=== PATIENT | female | born 1990 | race Caucasian/White ===

== ENCOUNTER 2022-04-03 20:14 | Emergency (ER) | payer SELFPAY ==
[2022-04-03 20:54] LABS: Absolute Lymphocytes (CBC) 3.5 K/uL (0.7-4.9); Lymphocytes % 35.8 % (15.3-44.8); MCV 82.6 fL (80-100); MPV 7.5 fL (7.6-11.3)
[2022-04-03 21:12] LABS: Albumin 3.9 g/dL (3.4-5.0); Bilirubin Direct 0.2 mg/dL (0-0.2); Bilirubin Total 0.9 mg/dL (0.2-1.0); Magnesium 2.4 mg/dL (1.8-2.4); Potassium 3.9 mmol/L (3.5-5.1); Protein, Total 7.7 g/dL (6.4-8.2); Troponin High Sensitivity 3.1 pg/mL (<58.9)
--- NOTE | 2022-04-03 22:02 | RAD REPORT ---
EXAM DESCRIPTION: RAD - Chest Single View - 04/03/2022 9:26 pm CLINICAL HISTORY: CHEST PAIN Chest pain. COMPARISON: Chest Pa And Lat (2 Views) dated 10/02/2019 FINDINGS: Portable technique limits examination quality. The lungs are grossly clear. The heart is normal in size. No displaced fractures. IMPRESSION: No acute intrathoracic process suspected.
--- NOTE | 2022-04-03 22:14 | ER ---
Nurse's Notes [facility] Name: Blanquita Leonardo Age: 31 yrs Sex: Female : 1990 Arrival Date: 04/03/2022 Time: 20:15 Bed 3 Private MD: Diagnosis: Chest pain, unspecified Presentation: 04/03 20:23 Chief complaint: Patient states: "I've been having chest pains all days and it's gotten as6 progressively worse as the nights gone on". Coronavirus screen: At this time, the client does not indicate any symptoms associated with coronavirus-19. Ebola Screen: No symptoms or risks identified at this time. Initial Sepsis Screen: Does the patient meet any 2 criteria? No. Patient's initial sepsis screen is negative. Does the patient have a suspected source of infection? No. Patient's initial sepsis screen is negative. Risk Assessment: Do you want to hurt yourself or someone else? Patient reports no desire to harm self or others. Onset of symptoms was April 03, 2022. 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 - Social history:: Smoking status: Patient denies any tobacco usage or history of. Screenin:00 Abuse screen: Denies threats or abuse. Nutritional screening: No deficits noted. ha1 Tuberculosis screening: No symptoms or risk factors identified. Fall Risk None identified. Gait- Normal/Bed Rest/Wheelchair (0 pts) Mental Status- Oriented to own ability (0 pts). Assessment: 21:52 General: Appears in no apparent distress. Behavior is calm, cooperative. Pain: ha1 Complains of pain in chest pain Pain radiates to the left breast Pain at worst was 7 out of 10 on a pain scale. Quality of pain is described as pressure, throbbing, Pain began gradually. Neuro: Level of Consciousness is awake, alert, obeys commands, Oriented to person, place, time, situation, Moves all extremities. Full function Gait is steady. Cardiovascular: Heart tones S1 S2 present Capillary refill < 3 seconds Rhythm is sinus rhythm Chest pain is described as mild. Respiratory: Airway is patent Trachea midline Respiratory effort is even, unlabored, Respiratory pattern is regular, symmetrical, Breath sounds are clear bilaterally. GI: No signs and/or symptoms were reported involving the gastrointestinal system. : No signs and/or symptoms were reported regarding the genitourinary system. EENT: No signs and/or symptoms were reported regarding the EENT system. Derm: No signs and/or symptoms reported regarding the dermatologic system. Musculoskeletal: Range of motion: intact in all extremities. Vital Signs: 20:23 BP 136 / 91; Pulse 79; Resp 16 S; Temp 98.3(O); Pulse Ox 100% on R/A; Weight 90.72 kg as6 (R); Height 5 ft. 4 in. (162.56 cm) (R); Pain 7/10; 22:02 BP 123 / 87; Pulse 69; Resp 16 S; Pulse Ox 100% on R/A; Weight 90.72 kg; Height 5 ft. 4 ha1 in. (162.56 cm); 22:02 Body Mass Index 34.33 (90.72 kg, 162.56 cm) ha1 ED Course: 20:15 Patient arrived in ED. jj6 20:16 [facility]C [facility]. kb 20:16 Burak Ryder MD is Attending Physician. kb 20:26 Triage completed. as6 20:26 Arm band placed on. as6 20:42 Inserted saline lock: 20 gauge in right upper arm, using aseptic technique. Blood as6 collected. 20:43 EKG completed in triage. Results shown to . as6 21:28 XRAY Chest (1 view) In Process Unspecified. EDMS 21:50 Katt Garcia, RAYSA is Primary Nurse. ha1 22:01 Patient has correct armband on for positive identification. Placed in gown. Bed in low ha1 position. Side rails up X 1. Adult w/ patient. Client placed on continuous cardiac and pulse oximetry monitoring. NIBP monitoring applied. 22:21 No provider procedures requiring assistance completed. ha1 22:22 IV discontinued, intact, bleeding controlled, No redness/swelling at site. Pressure kd3 dressing applied. 22:22 Patient maintains SpO2 saturation greater than 95% on room air. kd3 Administered Medications: 22:20 Drug: Pepcid (famotidine) 20 mg Route: IVP; Site: right antecubital; ha1 22:21 Follow up: Response: No adverse reaction ha1 22:20 Drug: Ketorolac 30 mg Route: IVP; Site: right antecubital; ha1 22:20 Follow up: Response: No adverse reaction ha1 Medication: 22:22 VIS not applicable for this client. kd3 Outcome: 22:13 Discharge ordered by . sara 22:22 Discharged to home ambulatory. kd3 22:22 Condition: stable 22:22 Discharge instructions given to patient, family, Instructed on discharge instructions, follow up and referral plans. Demonstrated understanding of instructions, follow-up care. 22:26 Patient left the ED. kd3 Signatures: Dispatcher [employer] EDMS Sarah Hodge, KAILEE-C SEAMER PANTY HOSE-Danelle Kirby jj6 Brian Brewer RN RN as6 Sheridan Mcclure RN RN kd3 Katt Garcia, RN RN ha1
--- NOTE | 2022-04-03 22:14 | EDPHYS ---
Physician Documentation [facility] Name: Blanquita Leonardo Age: 31 yrs Sex: Female : 1990 Arrival Date: 04/03/2022 Time: 20:15 Bed 3 Private MD: ED Physician Burak Ryder HPI: 04/03 22:11 This 31 yrs old Female presents to ER via Ambulatory with complaints of Chest Pain, kb Chest Tightness. 22:11 The patient or guardian reports chest pain that is located primarily in the epigastric kb area. The pain radiates to left breast. Associated signs and symptoms: The patient has no apparent associated signs or symptoms. The chest pain is described as aching. Duration: The patient or guardian reports multiple episodes. Modifying factors: The symptoms are alleviated by nothing. the symptoms are aggravated by nothing. Severity of pain: At its worst the pain was moderate in the emergency department the pain is unchanged. The patient has not experienced similar symptoms in the past. The patient has not recently seen a physician. Patient reports chest pain that begins in the epigastric area radiates around left side of chest. States pain started a month ago and has been intermittent but today has been constant.. 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 - Social history:: Smoking status: Patient denies any tobacco usage or history of. ROS: 22:11 Constitutional: Negative for fever, chills, and weight loss. kb 22:11 Cardiovascular: Positive for chest pain, Negative for edema, orthopnea, palpitations, paroxysmal nocturnal dyspnea. 22:11 All other systems are negative. Exam: 22:11 Constitutional: This is a well developed, well nourished patient who is awake, alert, kb and in no acute distress. Head/Face: Normocephalic, atraumatic. ENT: Moist Mucous membranes Cardiovascular: Regular rate and rhythm with a normal S1 and S2. No gallops, murmurs, or rubs. No pulse deficits. Respiratory: Respirations even and unlabored. No increased work of breathing. Talking in full sentences Abdomen/GI: Soft, non-tender. No distention Skin: Warm, dry with normal turgor. Normal color. MS/ Extremity: Pulses equal, no cyanosis. Neurovascular intact. Full, normal range of motion. Neuro: Awake and alert, GCS 15, oriented to person, place, time, and situation. Moves all extremities. Normal gait. Psych: Awake, alert, with orientation to person, place and time. Behavior, mood, and affect are within normal limits. 22:49 ECG was reviewed by the Attending Physician. kb Vital Signs: 20:23 BP 136 / 91; Pulse 79; Resp 16 S; Temp 98.3(O); Pulse Ox 100% on R/A; Weight 90.72 kg as6 (R); Height 5 ft. 4 in. (162.56 cm) (R); Pain 7/10; 22:02 BP 123 / 87; Pulse 69; Resp 16 S; Pulse Ox 100% on R/A; Weight 90.72 kg; Height 5 ft. 4 ha1 in. (162.56 cm); 22:02 Body Mass Index 34.33 (90.72 kg, 162.56 cm) ha1 MDM: 20:27 Patient medically screened. kb 22:11 Data reviewed: vital signs, nurses notes. Data interpreted: Pulse oximetry: on room air kb is 100 %. Interpretation: normal. Counseling: I had a detailed discussion with the patient and/or guardian regarding: the historical points, exam findings, and any diagnostic results supporting the discharge/admit diagnosis, lab results, radiology results, the need for outpatient follow up, a family practitioner, to return to the emergency department if symptoms worsen or persist or if there are any questions or concerns that arise at home. 04/03 20:30 Order name: Basic Metabolic Panel; Complete Time: 21:23 04/03 20:30 Order name: CBC with Diff; Complete Time: 21:23 04/03 20:30 Order name: D-Dimer; Complete Time: 21:23 04/03 20:30 Order name: LFT's; Complete Time: 21:23 04/03 20:30 Order name: Magnesium; Complete Time: 21:23 04/03 20:30 Order name: Troponin HS; Complete Time: 21:23 04/03 20:30 Order name: XRAY Chest (1 view); Complete Time: 22:04 04/03 20:30 Order name: EKG; Complete Time: 20:31 04/03 20:30 Order name: Cardiac monitoring; Complete Time: 22:02 04/03 20:30 Order name: EKG - Nurse/Tech; Complete Time: 20:42 04/03 20:30 Order name: IV Saline Lock; Complete Time: 20:42 04/03 20:31 Order name: Lipase; Complete Time: 21:23 04/03 20:30 Order name: Labs collected and sent; Complete Time: 20:42 04/03 20:30 Order name: O2 Per Protocol; Complete Time: 22:05 04/03 20:30 Order name: O2 Sat Monitoring; Complete Time: 22:02 EC:49 Rate is 76 beats/min. Rhythm is regular. QRS [place] is Normal. [place] interval is normal at kb 134 msec. QRS interval is normal at 98 msec. QT interval is normal at 436 msec. Administered Medications: 22:20 Drug: Pepcid (famotidine) 20 mg Route: IVP; Site: right antecubital; ha1 22:21 Follow up: Response: No adverse reaction ha1 22:20 Drug: Ketorolac 30 mg Route: IVP; Site: right antecubital; ha1 22:20 Follow up: Response: No adverse reaction ha1 Disposition Summary: 04/03/22 22:13 Discharge Ordered Location: Home kb Condition: Stable kb Diagnosis - Chest pain, unspecified kb Followup: kb - With: Emergency Department - When: As needed - Reason: Worsening of condition Followup: kb - With: Private Physician - When: 2 - 3 days - Reason: Recheck today's complaints, Continuance of care, Re-evaluation by your physician Discharge Instructions: - Discharge Summary Sheet kb - Nonspecific Chest Pain, Adult, [id number] kb Forms: - Medication Reconciliation Form kb - Thank You Letter kb - Antibiotic Education kb - Prescription Opioid Use kb Addendum: 04/07/2022 16:07 Co-signature as Attending Physician, Burak Ryder MD. r n Signatures: Dispatcher [employer] EDSarah Alvarez FNP-C VP COMPLIANCE-Ckb Burak Ryder MD MD rn Brian Brewer RN RN as6 Katt Garcia, RN RN ha1
[2022-04-03] MEDS ORDERED: FAMOTIDINE 20 MG/2 ML VIAL IV ONE (22:22)
[2022-04-03] MEDS ORDERED: KETOROLAC 30 MG/ML INJ ONE (22:22)
[2022-04-04 00:53] VITALS: TEMP 98.3; O2SAT 100
[2022-04-04 00:55] VITALS: BP 123/87
--- NOTE | 2022-04-04 09:20 | EKG ---
Test Date: 2022-04-03 Test Time: 20:31:33 [employer] Officer: MEASUREMENT RESULTS: Intervals: Rate: 76 ND: 134 QRSD: 98 QT: 388 QTc: 436 [place]: P: 43 ND: 134 QRS: 56 T: 42 INTERPRETIVE STATEMENTS: Normal sinus rhythm with sinus arrhythmia Normal ECG Compared to ECG 10/02/2019 08:22:16 No significant changes Electronically Signed On 04-04-22 09:18:34 CDT by Skinny Méndez
== END 2022-04-03 22:26 | disposition home or self-care (01) ==
LOC: ER 20:14
DX: R07.89 Other chest pain (principal)
CPT/HCPCS: 36415; 71045; 80048; 80076; 83690; 83735; 84484; 85025; 85379; 93005; 96374; 96375; 99285